=== PATIENT | male | born 1950 | race Caucasian/White ===

== ENCOUNTER 2016-11-10 12:03 | Day surgery (SDC) | payer MEDICARE, OTHER ==
[~2016-11-10] VITALS: Ht 180.3 cm; Wt 99.7 kg
[2016-11-10 09:15] VITALS: BP 157/80; PULSE 66; RESP 22; TEMP 97.7; O2SAT 96
[~2016-11-10 12:03] MED LIST: LACTATED RINGER'S 1000 ML INJ 1,000 ML IV ONE; NITROGLYCERIN 1000 MCG/5 ML VIAL IV ONE; ONDANSETRON HCL 4 MG/2 ML VIAL IV PUSH ONE; PHENYLEPH/NS 1000 MCG/10 ML SYR IV ONE; PROPOFOL 200 MG/20 ML AMP IV ONE
[2016-11-10 13:38] LABS: AUTOMATED NEUTROPHIL # 4.8 TH/MM3 (1.8-7.7); BASOPHIL # 0.2 TH/MM3 (0-0.2); BASOPHIL % 2.8 % (0.0-2.0); EOSINOPHIL # 0.3 TH/MM3 (0-0.4); EOSINOPHIL % 3.8 % (0.0-4.0); HEMATOCRIT 38.4 % (39.0-51.0); HEMO FLAGS DIFF FINAL; LYMPH % 14.2 % (9.0-44.0); MEAN CELL VOLUME 85.9 FL (80.0-100.0); MEAN CORPUSCULAR HEMOGLOBIN 30.2 PG (27.0-34.0); MEAN CORPUSCULAR HGB CONC 35.1 % (32.0-36.0); MONO % 10.6 % (0.0-8.0); NEUT % 68.6 % (16.0-70.0); PLATELET COUNT 349 TH/MM3 (150-450); RED BLOOD COUNT 4.47 MIL/MM3 (4.50-5.90); RED CELL DISTRIBUTION WIDTH 13.6 % (11.6-17.2)
[2016-11-10] MEDS ORDERED: PROP120C PO (13:40)
[2016-11-10] MEDS ORDERED: PRIM50TA5 PO (13:40)
[2016-11-10] MEDS ORDERED: COQ130CA PO (13:40)
[2016-11-10] MEDS ORDERED: CHLO25TA2 PO (13:40)
[2016-11-10] MEDS ORDERED: ROSU1TAB6 PO (13:40)
[2016-11-10] MEDS ORDERED: DULO1CAP3 PO (13:40)
[2016-11-10] MEDS ORDERED: AMLO10TA2 PO (13:40)
[2016-11-10] MEDS ORDERED: PLAV75TA29 PO (13:40)
[2016-11-10] MEDS ORDERED: LISI40TA PO (13:40)
[2016-11-10] MEDS ORDERED: DOXY1CAP91 PO (13:40)
[2016-11-10 13:43] VITALS: BP 161/84; PULSE 63; RESP 20; TEMP 98.1; O2SAT 98
[2016-11-10 13:46] LABS: APTT (PATIENT) 25.7 SEC (24.3-30.1); PROTHROMBIN TIME - PATIENT 10.8 SEC (9.8-11.6)
[2016-11-10 13:57] LABS: BICARBONATE 24.7 MEQ/L (21.0-32.0); POTASSIUM 3.7 MEQ/L (3.5-5.1)
[2016-11-10] MEDS ORDERED: SODIUM CHLORID 0.9% 500 ML IV SCH (14:00)
[2016-11-10] MEDS ORDERED: LACTATED RINGER'S 1000 ML IV SCH (14:00)
[2016-11-10] MEDS ORDERED: INSULIN HUMAN REGULAR 1,000 UNITS/10 ML VIAL SQ PRN (14:30)
[2016-11-10] MEDS ORDERED: ceFAZolin 1,000 MG/NS 100 ML IV SCH ×2 (14:30)
[2016-11-10] MEDS ORDERED: METOPROLOL TARTRATE 25 MG TAB PO PRN (14:30)
[2016-11-10] MEDS ORDERED: FAMOTIDINE 20 MG/2 ML VIAL ONE (15:33)
[2016-11-10] MEDS ORDERED: DEXAMETHASONE SOD PHOS 4 MG/ML VIAL ONE (15:34)
[2016-11-10] MEDS ORDERED: MIDAZOLAM HCL 2 MG/2 ML VIAL ONE (15:34)
[2016-11-10] MEDS ORDERED: HEPARIN SODIUM - SQ 10,000 UNITS/ML VIAL ONE ×2 (15:47→18:51)
[2016-11-10] MEDS ORDERED: BUPIVACAINE/EPINEPHRINE 0.5% PF 30 ML VIAL ONE (15:47)
[2016-11-10] MEDS ORDERED: IOHEXOL 300 MG/ML 100 ML BTL (for Rad CT) OTHER ONE (16:31)
[2016-11-10] MEDS: MEDIUM DOSE INSULIN NOVOLIN REGULAR SUPPLEMENTAL SCALE SQ SCH (19:20)
[2016-11-10] MEDS ORDERED: DO NOT ADM ANY ANTICOAGULANT DRUGS XX PRN (19:30)
[2016-11-10] MEDS ORDERED: METOCLOPRAMIDE HCL 10 MG/2 ML VIAL IVS PRN (19:45)
[2016-11-10] MEDS ORDERED: SODIUM CHLORIDE 0.9% 1000 ML @ 125 ML/HR IV SCH (19:45)
[2016-11-10] MEDS ORDERED: ENALAPRILAT 1.25 MG/ML VIAL IV PRN (19:45)
[2016-11-10] MEDS ORDERED: SODIUM NITROPRUSSIDE 50 MG/250 ML D5W IV SCH ×2 (19:45)
[2016-11-10] MEDS ORDERED: oxyCODONE/ACETAMINOPHEN 5 MG/325 MG TAB PO PRN (19:45)
[2016-11-10] MEDS ORDERED: cloNIDine HCL 0.1 MG TAB PO PRN (19:45)
[2016-11-10] MEDS ORDERED: SODIUM CHLOR 0.9% 250 ML IV PRN (19:45)
[2016-11-10] MEDS ORDERED: MORPHINE SULFATE 4 MG/ML INJ IV PUSH PRN (19:45)
[2016-11-10] MEDS ORDERED: LABETALOL HCL 100 MG/20 ML VIAL IVP PRN (19:45)
[2016-11-10] MEDS ORDERED: POTASSIUM CHLORIDE 20 MEQ CONTROLLED RELEASE TAB PO PRN (19:45)
[2016-11-10] MEDS ORDERED: HOLD GLUCOPHAGE, GLUCOPHAGE XR, AND AVANDAMET XX PRN (19:45)
[2016-11-10] MEDS ORDERED: ATROPINE SULFATE 1 MG/ML VIAL IV PUSH PRN (19:45)
[2016-11-10] MEDS ORDERED: ONDANSETRON HCL 4 MG/2 ML VIAL IV PRN (19:45)
[2016-11-10] MEDS ORDERED: SODIUM CHLORIDE 5 ML FLUSH PRN IVF (19:45)
[2016-11-10] MEDS: ENOXAPARIN SODIUM 30 MG/0.3 ML SYRINGE SQ SCH (19:54)
[2016-11-10] MEDS ORDERED: GLUCAGON 1 MG/ML VIAL OTHER PRN (20:00)
[2016-11-10] MEDS ORDERED: DEXTROSE 50% IN WATER 50 ML VIAL(D50) IV PUSH PRN (20:00)
[2016-11-10 21:00] VITALS: PULSE 64
[2016-11-10] MEDS: SODIUM CHLORIDE 5 ML FLUSH BID IVF SCH (21:00)
[2016-11-10 22:00] VITALS: PULSE 73
[2016-11-10 23:00] VITALS: PULSE 73
[2016-11-10 23:01] VITALS: BP 152/74; PULSE 73; RESP 14; TEMP 97.7; O2SAT 97
[2016-11-11] VITALS (17 sets, daily range): BP systolic 151–171; BP diastolic 74–86; PULSE 69–87; RESP 17; TEMP 97.9–98.4; O2SAT 94–97
[2016-11-11] MEDS: MEDIUM DOSE INSULIN NOVOLIN REGULAR SUPPLEMENTAL SCALE SQ SCH ×2 (06:13→11:51)
[2016-11-11] MEDS: ENOXAPARIN SODIUM 30 MG/0.3 ML SYRINGE SQ SCH (08:00)
[2016-11-11] MEDS ORDERED: CHLORTHALIDONE 50 MG TAB PO SCH (09:00)
[2016-11-11] MEDS: PRIMIDONE 50 MG TAB PO SCH ×2 (09:00→10:15)
[2016-11-11] MEDS ORDERED: ATORVASTATIN 20 MG TAB PO SCH (09:00)
[2016-11-11] MEDS ORDERED: PROPRANOLOL HCL LA 120 MG CAP PO SCH (09:00)
[2016-11-11] MEDS ORDERED: CLOPIDOGREL 75 MG TAB PO SCH (09:00)
[2016-11-11] MEDS ORDERED: LISINOPRIL 20 MG TAB PO SCH (09:00)
[2016-11-11] MEDS: DOXYCYCLINE HYCLATE 100 MG CAP PO SCH ×2 (09:00→10:16)
[2016-11-11] MEDS ORDERED: ASPIRIN EC 81 MG TABEC PO SCH (09:00)
[2016-11-11] MEDS ORDERED: DULoxetine HCl DR 60 MG CAP PO SCH (09:00)
[2016-11-11] MEDS: SODIUM CHLORIDE 5 ML FLUSH BID IVF SCH (10:16)
--- NOTE | 2016-11-11 20:45 | EKG ---
Date Performed: 11/10/2016 Time Performed: 12:53:43 PTAGE: 66 years EKG: Sinus rhythm Left axis deviation. ABNORMAL ECG NO PREVIOUS TRACING DOCTOR: Eddie Parmar Interpretating Date/Time 11/11/2016 20:44:21
--- NOTE | 2016-11-14 14:08 | MP ---
cc: ASH MILAN M.D., JAMES DATE OF SURGERY: 11/10/2016 PREOPERATIVE DIAGNOSIS Nonhealing diabetic neurotrophic ulceration, right fifth toe / limb-threatening ischemia. POSTOPERATIVE DIAGNOSIS Nonhealing diabetic neurotrophic ulceration, right fifth toe / limb-threatening ischemia. OPERATIVE PROCEDURE 1. Selective right femoral-tibial arteriogram. 2. Right anterior tibial orbital atherectomy and percutaneous balloon angioplasty. SURGEON Tao Yoder [employer] SUPERINTENDENT ELY [place] ANESTHESIA Local MAC. DESCRIPTION OF OPERATIVE PROCEDURE With the patient in supine position IV sedation was induced, the lower abdomen, both groins and the entire right lower extremity were prepped with Betadine and draped in the usual sterile fashion. One gram of Ancef was administered intravenously and following a protocol timeout, the skin and subcutaneous tissue surrounding the proposed right common femoral access site was infiltrated with 0.5% Marcaine with epinephrine. Utilizing ultrasound guidance, an 18-gauge needle was inserted into the right mid common femoral lumen and a J-wire advanced antegrade under fluoroscopic guidance into the proximal superficial femoral artery. A 5-Slovenian hemostatic sheath was deployed over the J-wire. Diluted contrast was injected through the sheath sidearm in conjunction with digital C-arm fluoroscopic imaging. This revealed wide patency of the entire superficial femoral and popliteal arterial system with no significant stenoses; however, severe trifurcation disease was present. The posterior tibial and anterior tibial arteries were extensively calcified throughout with multiple segmental stenoses ranging from 60-90%. The posterior tibial appeared more severely diseased than the anterior tibial which supplied angiosome perfusion to the nonhealing fifth toe. For this reason the anterior tibial was chosen for endovascular revascularization. The 5-Slovenian sheath was exchanged for a 45 cm 6-Slovenian sheath which was negotiated into the distal SFA and the patient then systemically heparinized with 5000 units. ACT measured 265 and during the procedure, 2000 additional units of heparin were administered to maintain ACT above 250. An Advantage guidewire Quick-Cross catheter combination was negotiated into the origin of the anterior tibial. The 0.035 system was exchanged for a 0.14 system comprised of PT Choice and Trailblazer guidance. This combination was fairly easily navigated through the multi-stenotic anterior tibial. The PT Choice was exchanged for a Viper wire which was parked within the anterior tibial immediately below the ankle level. It should be noted that the anterior tibial, although severely stenotic throughout, was patent to the ankle level. However, the dorsalis pedis did not visualize nor did the tarsal or metatarsal runoff. Nonetheless, the anterior tibial exhibited robust-appearing collaterals at the mid and distal calf level and I felt that even though the dorsalis pedis and distal vessels did not reconstitute, improvement in the anterior tibial collateral flow would likely benefit foot perfusion. The anterior tibial was orbitally atherectomized with a 1.25 CSI [place] spun at 60, 90, and 120,000 rpm, the full length of the anterior tibial lumen down to the ankle level. This was followed by balloon angioplasty with a Tapered 2 - 2.5 x 210 mm balloon inflated to 8 atmospheres, three separate inflations of 2 minutes each. Multiple 100 mcg doses of nitroglycerin were injected intermittently throughout the atherectomy and balloon angioplasty cycle. At completion, the anterior tibial was widely patent from its origin down to the ankle level with marked luminal gain and significant increased and rapidity of arterial flow. In addition the collaterals appeared much more robust and perfusion across the lower tibial level and even reconstitution of the posterior tibial at the ankle level appeared. The 45 cm 6-Slovenian sheath was exchanged for a short 6-Slovenian sheath which was secured with a skin suture of 4-0 nylon. Sterile dressing was applied. At completion of the procedure robust biphasic Doppler flow was present within the anterior tibial at the ankle level and gross perfusion within the foot appeared somewhat improved. The patient returned to the recovery room in stable condition having tolerated the procedure well. Total contrast used 30 cc. MD GREY Schumacher/VINCENZO /4:36 PM /1:49 PM
== END 2016-11-11 14:20 | disposition home or self-care (01) ==
LOC: HCVO 12:03 → HCPC 20:32 → HCVO 11-11 14:20
PROVIDERS: ATTEND Surgery Vascular Surgery
DX: E11.621 Type 2 diabetes mellitus with foot ulcer (principal); I99.8 Other disorder of circulatory system; I10 Essential (primary) hypertension; E78.00 Pure hypercholesterolemia, unspecified; I70.25 Atherosclerosis of native arteries of other extremities with ulceration
CPT/HCPCS: 01924; 37229; 75710; 80048; 82948; 85025; 85610; 85730; 86850; 86900; 86901; 93005; C1725; C1769; C1887; J0690; J1100; J1644; J2250; J2370; J2405; J3010; J7030; J7120; Q9967; J1650